=== PATIENT | female | born 1945 | race Caucasian/White ===

== ENCOUNTER 2017-04-21 09:00 | Outpatient (RCR) ==
[2016-03-11 20:11] VITALS: BMI 36.3
--- NOTE | 2017-04-01 11:38 | RS.OPPTEV2 ---
Date of Note: 03/31/17 Visit #: 1 Date of Evaluation: 03/31/17 Payer Source: MEDICARE Treatment Diagnosis: Right leg pain. History of Condition/Mechanism of Injury:: Patient fractured the right tib/fib on 03/03/16. She had intramedullary rodding on 03/13/16. She was admitted to [facility] on 03/11/16 for Physical and Occupational Therapy and was discharged home on 04/03/16. She was NWB on the right LE for 6-8 weeks. Prior Level of Function.....Patient was independent with: ADL's, Self Care, Work /Vocation, Caregiving, Ambulation/Mobility, Community Integration/Access Functional Limitations: Standing, Squatting, Ambulation, Community Access/ Integration Current Subjective/complaints:: Patient reports pain in the right lower leg and ankle. States she thought her pain was from varicose veins. She is supposed to set up an appointment to see a vascular doctor. States her balance is off. Reports tenderness at the medial side of the right lower leg and the medial/ inferior region of the knee joint. States she gets swelling into the right lower extremity with increased activity. She states she can feel where the rods are in her leg. She has difficulty with stairs. She uses a quad cane and a rail and goes up and down one step at a time. States she usually walks without an assistive device, unless she has to walk very long. States shopping is difficult, and she will take a quad cane with her to take some stress off the right LE. States she is not able to get up and down to perform housework easily because of the right knee. Discussed foot wear. Patient states she lives in flip flops in the summer. Treatment Side (optional): Right Medical History Medical History Comments:: Pt reported she fell down her stairs and fractured her RLE. Pt was independent with all ADLS prior to accident. Hx Home Medications: Tylenol Patient's Goals: Her goal is to get relief of pain of the right LE and increase her functional level. Pain Assessment - Pain Description Pain Location: right lower leg and ankle Current Pain Intensity: 3/10 Worst Pain Intensity: 8/10 Functional Outcome Measure LE Functional Scale: 28 (28/80=65% impairment) - G Codes & Severity Modifier G Codes & Modifier: Mobility current CL. Mobility goal CJ Source of G Code score: LE functional scale Observation - Observation Inspection: Right LE presents with well healing incisions at the anterior knee joint and along the anterior lower leg. She demonstrates severe spider veins with hyperpigmentation over the right ankle and dorsum of the right foot. Comments: Standing without shoes, patient demonstrates right genu valgus (patient states this is since surgery) and bilateral pes planus. Girth Measurement Lower: Right LE: metheads 21 cm, malleoli 27 cm, base of incision at lower leg 26.5cm, superior aspect of incision at lower leg 40 cm, Tibial plateau 41.5 cm. Gait - Gait Pattern Gait Comments: Pateint ambulates without an assistive device with decreased right hip and knee flexion during swing phase. Demonstrates decreased heel strike and decreased stance phase on the right LE. - Right Ankle ROM Right DF with Knee extension: to neutral Right Plantarflexion: 60 (degrees AROM) Right Eversion: 5 (degrees AROM) Right Inversion: 5 (degrees AROM) Right Ankle/Foot ROM Limitations: Soft Tissue Tightness - Right Ankle Strength Right Dorsiflexion: 4 Good Right Plantarflexion: 4 Good Right Eversion: 4+ Good + Right Inversion: 4 Good Comments: Right knee 4/5 throughout. Palpation Comments:: Patient reports general tenderness with palpation throughout right ankle and medial lower leg. Sensation - Sensation Comments: Reports intact sensation. When asked about tingling or numbness, she reports "not much". Interventions - Exercise/Activities/Manual Therapy Exercises/Activities: Patient instructed in exercises for home of resisted ankle PF and DF with yellow theraband, SLR, and heelcord stretching (towel stretch). Strongly encouraged her to wear shoes with a good arch support to decrease stress on her arch, ankle, and knees. Manual Therapy: NA HOME EXERCISE PROGRAM: resisted ankle PF and DF with yellow theraband, SLR, and heelcord stretching (towel stretch). - Charges Total Direct Minutes: 50 mins Total Treatment Time: 50 mins Procedures billed for this date of service:: Brian Rod Assessment Assessment: Patient presents to therapy with a diagnosis of s/p Fx tib/fib following insertion of ortho implant in right leg. Her surgery was in February of 2016. She reports continued right LE weakness and pain. She reports difficulty with prolonged weight bearing activities, such as shopping or housework. Reports difficulty getting up and down and also reports decreased balance. She exhbits weakness throughout the right knee and ankle and limited flexibility into DF. She demonstrates good potential to benefit from stretching exercises to increase ankle DF, and strengthening to improve right knee and ankle stability for decreased pain and increased level of function. Patient Education: Education of diagnosis, Body/Joint mechanics, Home Exercise Program, Home Safety, Activity Modification, Education of Plan of Care Rehab Potential: Good Short Term Goals Goal #1: Pt independent with basic HEP. Goal to be met by: 04/15/17 Goal #2: Right ankle DF to 10 degrees actively. Goal to be met by: 04/15/17 Goal #3: Right quad strength 4+/5. Goal to be met by: 04/15/17 Goal #4: Right ankle strength 4+/5 throughout. Goal to be met by: 04/15/17 Long-Term Goals Goal #1: Pt knows HEP and to continue ex's to maintain functional level at D/C. Goal to be met by: 05/21/17 Goal #2: Score on LE functional scale improved to <39% impairment. Goal to be met by: 05/21/17 Goal #3: Pt able to perform prolonged walking with shopping w/ minimal right LE pain Goal to be met by: 05/21/17 Goal #4: Pt to perform all ADL's and daily activities with minimal right LE pain. Goal to be met by: 05/21/17 Plan - Treatment to be Provided Procedures: Therapeutic Exercises, Therapeutic Activity, Neuromuscular Rehab, Manual Therapy, Patient Education Modalities: Electrical Stimulation, Ultrasound/Phonophoresis, Class IV Laser, Cryotherapy, Hot Packs - Treatment Plan Frequency: 2-3 X week Duration: 6 weeks ORDER # VISITS AND/OR THROUGH DATE: 05/21/17 - Treatment Code (1) Joint pain Qualifiers: Joint pain location: ankle Laterality: right Qualified Description : Arthralgia of right ankle Qualifier Code(s): (M25.571) Pain in right ankle and joints of right foot (2) Pain in joint Qualifiers: Joint pain location: knee Laterality: right Qualified Description: Arthralgia of right knee Qualifier Code(s): (M25.561) Pain in right knee (3) Right leg weakness Comments: R29.898 (4) Fracture of tibia or fibula following insertion of orthopedic implant, joint prosthesis, or bone plate, right leg Comments: M96.579
--- NOTE | 2017-04-02 09:58 | RS.OPPTDN ---
Subjective Date of Note: 04/02/17 Visit #: 2 Date of Evaluation: 03/31/17 Payer Source: MEDICARE Treatment Diagnosis: Right leg pain. Current Subjective/complaints:: Reports the R LE pain is dull today,and usually increases as the day progresses. Pain Assessment - Pain Description Pain Location: right lower leg and ankle Pain Description: Dull, Aching Pain Description: soreness Current Pain Intensity: not rated today - Heat/Cryotherapy Treatment: Cryotherapy (15 mins. to R LE after exercises) Interventions - Exercise/Activities/Manual Therapy Exercises/Activities: 20 mins. total resisted ankle PF and DF with yellow theraband,quad sets SLR, and heelcord stretching (towel stretch). Total minutes of Exercise: 20 Manual Therapy: NA Total minutes of Manual Therapy: 0 HOME EXERCISE PROGRAM: resisted ankle PF and DF with yellow theraband, SLR, and heelcord stretching (towel stretch). - Charges Total Direct Minutes: 30 Total Treatment Time: 50 Procedures billed for this date of service:: US,ex,cp Assessment: Patient reports increased muscle aching as exercises progress,but no significant increase in pain.She has good return demo of each exercise,is attentive to recommendations regarding foot wear for better arch support. Patient demonstrates compliance with HEP?: Yes Short Term Goals Goal #1: Pt independent with basic HEP. Goal to be met by: 04/15/17 Progress towards Goal:: Progressing Goal #2: Right ankle DF to 10 degrees actively. Goal to be met by: 04/15/17 Goal #3: Right quad strength 4+/5. Goal to be met by: 04/15/17 Goal #4: Right ankle strength 4+/5 throughout. Goal to be met by: 04/15/17 Alf Goals Goal #1: Pt knows HEP and to continue ex's to maintain functional level at D/C. Goal to be met by: 05/21/17 Progress towards goal: Progressing Goal #2: Score on LE functional scale improved to <39% impairment. Goal to be met by: 05/21/17 Goal #3: Pt able to perform prolonged walking with shopping w/ minimal right LE pain Goal to be met by: 05/21/17 Goal #4: Pt to perform all ADL's and daily activities with minimal right LE pain. Goal to be met by: 05/21/17 Plan PLAN OF CARE EXPIRES ON:: 05/21/17 ORDER # VISITS AND/OR THROUGH DATE: 05/21/17 PLAN: Continue Plan of Care
--- NOTE | 2017-04-10 13:23 | RS.OPPTDN ---
Subjective Date of Note: 04/10/17 Visit #: 3 Date of Evaluation: 03/31/17 Payer Source: MEDICARE Treatment Diagnosis: Right leg pain. Current Subjective/complaints:: Patient reports continued discomfort right calf. Reports a reduction in pain and tenderness following treatment. Pain Assessment - Pain Description Pain Location: right lower leg and ankle Pain Description: Dull, Aching Pain Description: soreness Current Pain Intensity: not rated today - Treatment Modality: Ultrasound Parameters/Method Applied: [id number] at 1.5w/cm2 to the right calf prior to EX. Patient in sitting. Patient Position: Sitting - Heat/Cryotherapy Treatment: Cryotherapy ([id number] to the right calf following treatment. Patient in sitting. ) Interventions - Exercise/Activities/Manual Therapy Exercises/Activities: [id number] ankle pumps, isometric ankle df, and heel cord stretching. Total minutes of Exercise: 10mins Manual Therapy: [id number] Directional massage of lower leg. Patient in sitting. Total minutes of Manual Therapy: 10mins HOME EXERCISE PROGRAM: resisted ankle PF and DF with yellow theraband, SLR, and heelcord stretching (towel stretch). - Charges Total Direct Minutes: 32mins Total Treatment Time: 47mins Procedures billed for this date of service:: US, EX, CP Assessment: Patient tolerates manual therapy well and should benefit from directional massage to reduce swelling and pain. Patient Education: Body/Joint mechanics, Home Exercise Program, Activity Modification Comments: Reviewed dx, HEP and benefits of self directional massage. Patient demonstrates compliance with HEP?: Yes Short Term Goals Goal #1: Pt independent with basic HEP. Goal to be met by: 04/15/17 Progress towards Goal:: Progressing Goal #2: Right ankle DF to 10 degrees actively. Goal to be met by: 04/15/17 Progress towards Goal:: Progressing Goal #3: Right quad strength 4+/5. Goal to be met by: 04/15/17 Goal #4: Right ankle strength 4+/5 throughout. Goal to be met by: 04/15/17 Case Specialist Goals Goal #1: Pt knows HEP and to continue ex's to maintain functional level at D/C. Goal to be met by: 05/21/17 Progress towards goal: Progressing Goal #2: Score on LE functional scale improved to <39% impairment. Goal to be met by: 05/21/17 Goal #3: Pt able to perform prolonged walking with shopping w/ minimal right LE pain Goal to be met by: 05/21/17 Goal #4: Pt to perform all ADL's and daily activities with minimal right LE pain. Goal to be met by: 05/21/17 Plan PLAN OF CARE EXPIRES ON:: 05/21/17 ORDER # VISITS AND/OR THROUGH DATE: 05/21/17 PLAN: Continue Plan of Care
--- NOTE | 2017-04-14 14:34 | RS.OPPTDN ---
Subjective Date of Note: 04/14/17 Visit #: 4 Date of Evaluation: 03/31/17 Payer Source: MEDICARE Treatment Diagnosis: Right leg pain. Current Subjective/complaints:: Nevaeh reports increased pain in the right lower leg following last visit. Agrees to try treatment again today. Reports improvement in pain following todays session. Pain Assessment - Pain Description Pain Location: right lower leg and ankle Pain Description: Dull, Aching Pain Description: soreness Current Pain Intensity: not rated today - Treatment Modality: Ultrasound Parameters/Method Applied: [id number] at 1.5w/cm2 to the left calf prior to MT. Patient in sitting. Patient Position: Sitting Interventions - Exercise/Activities/Manual Therapy Exercises/Activities: [id number] ankle pumps, isometric ankle df, and heel cord stretching. Total minutes of Exercise: 10mins Manual Therapy: [id number] Directional massage of lower leg. Patient in sitting. Total minutes of Manual Therapy: 20mins HOME EXERCISE PROGRAM: resisted ankle PF and DF with yellow theraband, SLR, and heelcord stretching (towel stretch). - Charges Total Direct Minutes: 42mins Total Treatment Time: 45mins Procedures billed for this date of service:: US, MT, EX Assessment: Patient responds better to treatment today. Patient Education: Education of diagnosis, Body/Joint mechanics, Home Exercise Program, Home Safety Patient demonstrates compliance with HEP?: Yes Short Term Goals Goal #1: Pt independent with basic HEP. Goal to be met by: 04/15/17 Progress towards Goal:: Progressing Goal #2: Right ankle DF to 10 degrees actively. Goal to be met by: 04/15/17 Progress towards Goal:: Progressing Goal #3: Right quad strength 4+/5. Goal to be met by: 04/15/17 Goal #4: Right ankle strength 4+/5 throughout. Goal to be met by: 04/15/17 Tobacco Sweeper Goals Goal #1: Pt knows HEP and to continue ex's to maintain functional level at D/C. Goal to be met by: 05/21/17 Progress towards goal: Progressing Goal #2: Score on LE functional scale improved to <39% impairment. Goal to be met by: 05/21/17 Goal #3: Pt able to perform prolonged walking with shopping w/ minimal right LE pain Goal to be met by: 05/21/17 Goal #4: Pt to perform all ADL's and daily activities with minimal right LE pain. Goal to be met by: 05/21/17 Plan PLAN OF CARE EXPIRES ON:: 05/21/17 ORDER # VISITS AND/OR THROUGH DATE: 05/21/17 PLAN: Continue Plan of Care
--- NOTE | 2017-04-16 13:59 | RS.OPPTDN ---
Subjective Date of Note: 04/16/17 Visit #: 5 Date of Evaluation: 03/31/17 Payer Source: MEDICARE Treatment Diagnosis: Right leg pain. Current Subjective/complaints:: Patient reports improvement in pain and swelling of the right calf after last session. States she is using a compression wrap at home. Pain Assessment - Pain Description Pain Location: right lower leg and ankle Pain Description: Dull, Aching Pain Description: soreness Current Pain Intensity: mild to mod Other Comments regarding Pain:: Reports little to no discomfort with walking after treatment today. - Treatment Modality: Ultrasound Parameters/Method Applied: [id number] @ 1.5w/cm2 to the right calf prior to MT and EX. Patient in sitting. Patient Position: Sitting Interventions - Exercise/Activities/Manual Therapy Exercises/Activities: [id number] ankle pumps, isometric ankle df, and heel cord stretching. Total minutes of Exercise: 10mins Manual Therapy: [id number] Directional massage of lower leg. Patient in sitting. Total minutes of Manual Therapy: 20mins HOME EXERCISE PROGRAM: resisted ankle PF and DF with yellow theraband, SLR, and heelcord stretching (towel stretch). - Charges Total Direct Minutes: 42mins Total Treatment Time: 42mins Procedures billed for this date of service:: US, MT, EX Assessment: Patient responding well to treatment. Swelling appears to be effecting pain level. Patient Education: Body/Joint mechanics, Home Exercise Program Patient demonstrates compliance with HEP?: Yes Short Term Goals Goal #1: Pt independent with basic HEP. Goal to be met by: 04/15/17 Progress towards Goal:: Progressing Goal #2: Right ankle DF to 10 degrees actively. Goal to be met by: 04/15/17 Progress towards Goal:: Progressing Goal #3: Right quad strength 4+/5. Goal to be met by: 04/15/17 Goal #4: Right ankle strength 4+/5 throughout. Goal to be met by: 04/15/17 Half-Way Goals Goal #1: Pt knows HEP and to continue ex's to maintain functional level at D/C. Goal to be met by: 05/21/17 Progress towards goal: Progressing Goal #2: Score on LE functional scale improved to <39% impairment. Goal to be met by: 05/21/17 Goal #3: Pt able to perform prolonged walking with shopping w/ minimal right LE pain Goal to be met by: 05/21/17 Goal #4: Pt to perform all ADL's and daily activities with minimal right LE pain. Goal to be met by: 05/21/17 Plan PLAN OF CARE EXPIRES ON:: 05/21/17 ORDER # VISITS AND/OR THROUGH DATE: 05/21/17 PLAN: Progress Exercises (Continue modalities and manual therapy to reduce pain and swelling and progress exercise to increase functional activity level.)
--- NOTE | 2017-04-21 11:37 | RS.OPPTDN ---
Subjective Date of Note: 04/21/17 Visit #: 6 Date of Evaluation: 03/31/17 Payer Source: MEDICARE Treatment Diagnosis: Right leg pain. Current Subjective/complaints:: Patient reports temporary reduction in pain with modalities and manual therapy. Pain Assessment - Pain Description Pain Location: right lower leg and ankle Pain Description: Dull, Aching Pain Description: soreness Current Pain Intensity: mild to mod - Treatment Modality: Ultrasound Parameters/Method Applied: [id number] pulsed at 1.5w/cm2 to the right calf prior to MT. Patient Position: Sitting Interventions - Exercise/Activities/Manual Therapy Exercises/Activities: [id number] ankle pumps and heel cord stretching. Isometric ankle df, inversion, and eversion. Quad sets. Discussed adding SLR and isometric hip adduction to HEP. Patient given copies of HEP. Total minutes of Exercise: 10mins Manual Therapy: [id number] Directional massage of lower leg. Patient in sitting. Total minutes of Manual Therapy: 20mins HOME EXERCISE PROGRAM: resisted ankle PF and DF with yellow theraband, SLR, and heelcord stretching (towel stretch). Quad sets. SLR. Isometric hip adduction. - Objective Findings Observations,measurements,etc.: No change in FOM - Charges Total Direct Minutes: 42mins Total Treatment Time: 45mins Procedures billed for this date of service:: US, MT, EX Assessment: Patient continues to have significant discomfort right medial knee joint and into calf. This is only temporarily reduced with modalities and directional massage. Patients discomfort seems to be related to swelling/fluid retention. She has an appointment with a Vascular Physician which she should benefit from. Patient Education: Education of diagnosis, Body/Joint mechanics, Home Exercise Program, Home Safety, Activity Modification, Education of Plan of Care Comments: Reviewed all patient education of dx, mechanics, POC, and HEP. Patient demonstrates compliance with HEP?: Yes Short Term Goals Goal #1: Pt independent with basic HEP. Goal to be met by: 04/15/17 (100%) Progress towards Goal:: Met Goal #2: Right ankle DF to 10 degrees actively. Goal to be met by: 04/15/17 Progress towards Goal:: Progressing Goal #3: Right quad strength 4+/5. Goal to be met by: 04/15/17 Progress towards Goal:: Progressing Goal #4: Right ankle strength 4+/5 throughout. Goal to be met by: 04/15/17 Progress towards Goal:: Progressing Intermediate Goals Goal #1: Pt knows HEP and to continue ex's to maintain functional level at D/C. Goal to be met by: 05/21/17 Progress towards goal: Progressing Goal #2: Score on LE functional scale improved to <39% impairment. Goal to be met by: 05/21/17 Progress towards goal: No Change Goal #3: Pt able to perform prolonged walking with shopping w/ minimal right LE pain Goal to be met by: 05/21/17 Progress towards goal: No Change Goal #4: Pt to perform all ADL's and daily activities with minimal right LE pain. Goal to be met by: 05/21/17 Progress towards goal: No Change Plan PLAN OF CARE EXPIRES ON:: 05/21/17 ORDER # VISITS AND/OR THROUGH DATE: 05/21/17 PLAN: Plan for Discharge (Patient to be discharge from PT at this time due to limited progress. She will see Vascular Physician this week for Evaluation.)
== END 2017-04-24 ==
PROVIDERS: ATTEND Orthopaedic Surgery
DX: M96.671 Fracture of tibia or fibula following insertion of orthopedic implant, joint prosthesis, or bone plate, right leg (principal)

== ENCOUNTER 2018-02-04 09:02 | Outpatient (CLI) ==
[2016-03-11 20:11] VITALS: BMI 36.3
--- NOTE | 2018-02-04 11:19 | CT ---
EXAM: CT chest with contrast HISTORY: Follow up pulmonary nodule COMPARISON: CTA chest 09/08/2016 TECHNIQUE: Serial axial images of the chest were obtained after 75 ml of Omnipaque IV contrast was a dministered. These were obtained from the lung apices to the upper abdomen. FINDINGS: The thyroid is normal. Visualized vessels are unremarkable. There is no dissection, aneu rysm or stenosis. The heart is normal in size without pericardial effusion. There is no mediastinal , hilar or axillary pathologically enlarged lymph nodes. There is a calcified right hilar lymph node . There is no pneumothorax or pleural effusion. There is moderate unchanged emphysema. There is a 0.3 cm pulmonary nodule in the right lung base on image 40 which is unchanged. There is an adjacent pul monary nodule on image 42 which is stable measuring 0.3 cm. There is a 0.3 cm left lower lobe pulmon rigo nodule on image 29 which is stable. Left perifissural nodule is stable on image 23. There is no new consolidation, nodule or mass. The airways are patent. Soft tissues in the upper abdomen is unremarkable with a small gastric fundus diverticulum. The oss eous structures are unremarkable. IMPRESSION: 1. No acute cardiopulmonary process, consolidation or new pulmonary nodule. 2. Stable pulmonary nodules as measured above. These have been stable since 2016 and are considered benign. 3. Stable emphysema.
== END 2018-02-04 09:03 | disposition home or self-care (01) ==
LOC: RAD 09:02
PROVIDERS: ATTEND Family Medicine
DX: R93.8 Abnormal findings on diagnostic imaging of other specified body structures (principal)
CPT/HCPCS: 36415; 82565